=== PATIENT | female | born 1950 | race Caucasian/White ===

== ENCOUNTER 2019-02-01 09:10 | Outpatient (CLI) | payer MEDICARE, OTHER ==
[2019-02-01 09:32] LABS: BASOPHILS % 0.4 % (0.0-1.5)
[2019-02-01 10:16] LABS: eGFR (Non-African) > 60
[2019-02-01 12:36] LABS: APPEARANCE,URINE CLEAR (CLEAR); COLOR,URINE YELLOW (YELLOW); OCCULT BLOOD,URINE NEGATIVE (NEGATIVE); PH URINE 5.5 (5.0 - 8.0); UROBILINOGEN URINE 0.2 Eu (0.2-1.0)
== END 2019-02-01 09:12 ==
LOC: LAB 09:10
PROVIDERS: ATTEND Family Medicine
DX: E78.2 Mixed hyperlipidemia (principal); I10 Essential (primary) hypertension; E55.9 Vitamin D deficiency, unspecified; Z13.29 Encounter for screening for other suspected endocrine disorder
CPT/HCPCS: 36415; 80053; 81002; 82306; 84443; 85025